=== PATIENT | male | born 1995 | race Caucasian/White ===

== ENCOUNTER → 2016-12-29 | Outpatient (REF) | payer OTHER | LOC: M LAB REF 11:10 | PROVIDERS: ATTEND Physician Assistant | DX: R19.7 Diarrhea, unspecified (principal) ==

== ENCOUNTER 2021-12-05 13:19 | Emergency (ER) | payer OTHER ==
[~2021-12-05] VITALS: Ht 180.3 cm; Wt 109.6 kg
[2021-12-05] MEDS ORDERED: LIDOCAINE 1% MDV 20ML VIAL SC ONE (15:00)
[2021-12-05] MEDS ORDERED: CEPH500C PO (16:03)
[2021-12-05 16:37] VITALS: BP 138/94
== END 2021-12-05 16:40 | disposition home or self-care (01) ==
LOC: M ED 13:19
DX: S61.217A Laceration without foreign body of left little finger without damage to nail, initial encounter (principal); W26.0XXA Contact with knife, initial encounter; Y92.099 Unspecified place in other non-institutional residence as the place of occurrence of the external cause; J45.909 Unspecified asthma, uncomplicated

== ENCOUNTER → 2022-05-25 | Outpatient (REF) | payer OTHER ==
[~2022-05-25] MED LIST: CEPH500C PO
[2022-05-25 16:57] LABS: BASO # 0.1 10^3/uL (0.0-0.2); BASO % 0.9 % (0.0-1.0); EOS # 0.2 10^3/uL (0.0-0.5); EOS % 3.5 % (0.0-3.0); HEMATOCRIT 46.9 % (42.0-52.0); HEMOGLOBIN 16.1 g/dl (13.5-17.5); LYMPH # 2.4 10^3/uL (1.5-5.0); LYMPH % 34.9 % (24.0-44.0); MEAN CORPUSCULAR HEMOGLOBIN 30.9 pg (27.0-33.0); MEAN CORPUSCULAR HGB CONC 34.3 g/dl (32.0-36.5); MONO # 0.6 10^3/uL (0.0-0.8); NEUTROPHILS # 3.6 10^3/uL (1.5-8.5); PLATELET COUNT, AUTOMATED 274 10^3/uL (150-450); RED BLOOD COUNT 5.21 10^6/uL (4.30-6.10); WHITE BLOOD COUNT 6.9 10^3/uL (4.0-10.0)
[2022-05-25 18:39] LABS: ALBUMIN 4.2 G/DL (3.2-5.2); ALT/SGPT 33 U/L (7.0-40); BILIRUBIN,TOTAL 0.6 MG/DL (0.3-1.2); BLOOD UREA NITROGEN 17 MG/DL (9-23); CALCIUM LEVEL 9.6 MG/DL (8.5-10.1); CARBON DIOXIDE LEVEL 29 MMOL/L (20-31); CHLORIDE LEVEL 106 MMOL/L (98-107); CHOLESTEROL LEVEL 188 MG/DL (<200); CREATININE FOR GFR 0.85 MG/DL (0.70-1.30); GLOMERULAR FILTRATION RATE > 60.0 (>60); GLUCOSE, FASTING 69 MG/DL (60-100); HDL CHOLESTEROL 69.5 MG/DL (>40); LDL CHOLESTEROL 104.1 MG/DL (<100); NON-HDL-C 119 MG/DL; POTASSIUM SERUM 4.6 MMOL/L (3.5-5.1); SODIUM LEVEL 141 MMOL/L (136-145); TRIGLYCERIDES LEVEL 72 MG/DL (<150)
== END ==
LOC: M SFHCCLAY 11:48
PROVIDERS: ATTEND Family Medicine
DX: R03.0 Elevated blood-pressure reading, without diagnosis of hypertension (principal)

== ENCOUNTER → 2022-05-25 | Outpatient (CLI) | payer OTHER | LOC: M CLY 11:22 | PROVIDERS: ATTEND Family Medicine | DX: M54.50 Low back pain, unspecified (principal) ==

== ENCOUNTER → 2022-06-30 | Outpatient (REF) | payer OTHER | LOC: M LAB REF 14:25 | PROVIDERS: ATTEND Otolaryngology | DX: D14.0 Benign neoplasm of middle ear, nasal cavity and accessory sinuses (principal) ==

== ENCOUNTER 2022-12-25 20:33 | Emergency (ER) | payer BC, OTHER ==
[~2022-12-25] VITALS: Ht 180.3 cm; Wt 103.0 kg
[2022-12-25 20:35] VITALS: BP 158/82; TEMP 98.4; O2SAT 98
[2022-12-25] MEDS ORDERED: ceFAZolin SOD 1 GM in D5W MINI-BAG PLUS 50 ML IV ONE (22:30)
[2022-12-26] MEDS ORDERED: LIDOCAINE 2% MDV 20ML VIAL SC ONE
[2022-12-26] MEDS ORDERED: CEPH500C PO (00:33)
== END 2022-12-26 00:55 | disposition home or self-care (01) ==
LOC: M ED 20:33
DX: S61.201A Unspecified open wound of left index finger without damage to nail, initial encounter (principal); W31.89XA Contact with other specified machinery, initial encounter; Y92.009 Unspecified place in unspecified non-institutional (private) residence as the place of occurrence of the external cause
CPT/HCPCS: 64450; 73140; 96365; 96366; 99282; J0690

== ENCOUNTER → 2023-12-26 | Outpatient (REF) | payer BC ==
[2023-12-26 18:36] LABS: ALBUMIN 3.9 G/DL (3.2-5.2); ALKALINE PHOSPHATASE 38 U/L (46-116); ALT/SGPT 49 U/L (7.0-40); AST/SGOT 30 U/L (<34); BILIRUBIN,TOTAL 0.5 MG/DL (0.3-1.2); BLOOD UREA NITROGEN 12 MG/DL (9-23); CALCIUM LEVEL 9.2 MG/DL (8.5-10.1); CARBON DIOXIDE LEVEL 30 MMOL/L (20-31); CHLORIDE LEVEL 106 MMOL/L (98-107); CREATININE FOR GFR 0.98 MG/DL (0.70-1.30); GLOMERULAR FILTRATION RATE > 60.0 (>60); GLUCOSE, FASTING 90 MG/DL (60-100); POTASSIUM SERUM 3.5 MMOL/L (3.5-5.1); SODIUM LEVEL 141 MMOL/L (136-145); TOTAL PROTEIN 6.4 G/DL (5.7-8.2)
== END ==
LOC: M SFHCCLAY 14:34
PROVIDERS: ATTEND Family Medicine
DX: I10 Essential (primary) hypertension (principal)

== ENCOUNTER 2024-05-29 14:44 | Emergency (ER) | payer BC ==
[~2024-05-29] VITALS: Ht 180.3 cm; Wt 107.9 kg
[2024-05-29] MEDS ORDERED: CHLO125TA (15:00)
[2024-05-29 16:47] VITALS: BP 132/87; TEMP 97.7; O2SAT 98
[2024-05-29] MEDS: LIDOCAINE 1% MDV 20ML VIAL SC ONE (17:45)
== END 2024-05-29 18:02 | disposition home or self-care (01) ==
LOC: M ED 14:44
DX: S61.412A Laceration without foreign body of left hand, initial encounter (principal); W26.8XXA Contact with other sharp object(s), not elsewhere classified, initial encounter; Y92.9 Unspecified place or not applicable; Y93.9 Activity, unspecified; Y99.9 Unspecified external cause status; I10 Essential (primary) hypertension; J45.909 Unspecified asthma, uncomplicated